=== PATIENT | male | born 1935 | race Caucasian/White ===

== ENCOUNTER 2019-07-25 08:37 | Day surgery (SDC) | payer MEDICARE, OTHER ==
[~2019-07-25 08:37] MED LIST: Lactated Ringers 1,000 ML IV SCH; Sodium Chloride 0.9% 10 ML SDV IV PRN; Sodium Chloride 0.9% 10 ML Syringe FLUSH PRN; Sodium Chloride 0.9% 2.5 ML Syringe FLUSH PRN
[2019-07-25] MEDS ORDERED: Propofol 200 MG/20 ML SDV ONE (09:24)
--- NOTE | 2019-07-25 09:37 | PCM.PREANE ---
Preanesthetic Assessment - Anesthesia/Transfusion/Family Hx Anesthesia History: Prior Anesthesia Without Reaction Family History of Anesthesia Reaction: No Transfusion History: No Prior Transfusion(s) Intubation History: Unknown - Review of Systems General: No Symptoms Pulmonary: No Symptoms Cardiovascular: No Symptoms Gastrointestinal: No Symptoms, Other (5 polyps on colonoscopy last year) Neurological: No Symptoms Other: Reports: None - Physical Assessment NPO Status Date: 07/24/19 NPO Status Time: 22:00 Vital Signs: Last Vital Signs Temp 36.6 C 07/25/19 08:51 Pulse 76 07/25/19 08:51 Resp 16 07/25/19 08:51 BP 146/46 H 07/25/19 08:51 Pulse Ox 93 L 07/25/19 08:51 Height: 6 ft Weight: 105.687 kg ASA Class: 3 Mental Status: Alert & Oriented x3 Airway Class: Mallampati = 2 Dentition: Reports: Dentures (upper and lower) Thyro-Mental Finger Breadths: 3 Mouth Opening Finger Breadths: 3 ROM/Head Extension: Limited/Partial Lungs: Normal Respiratory Effort, Decreased Breath Sounds Cardiovascular: Regular Rate, Regular Rhythm - Allergies Allergies/Adverse Reactions: Allergies Allergy/AdvReac Type Severity Reaction Status Date / Time Sulfa (Sulfonamide Allergy Itching Verified 07/18/19 12:06 Antibiotics) - Blood Blood Available: No - Anesthesia Plan Pre-Op Medication Ordered: None - Acknowledgements Anesthesia Type Planned: MAC Pt an Appropriate Candidate for the Planned Anesthesia: Yes Alternatives and Risks of Anesthesia Discussed w Pt/Guardian: Yes Pt/Guardian Understands and Agrees with Anesthesia Plan: Yes PreAnesthesia Questionnaire HEENT History: Reports: Cataract, Other (See Below) Other HEENT History: wears glasses, has top and bottom dentures Cardiovascular History: Reports: Angina, Arrhythmia, Heart Failure, High Cholesterol, Hypertension Respiratory History: Reports: COPD (moderate), Sleep Apnea Other Respiratory History: uses a CPAP Gastrointestinal History: Reports: Colon Polyp, Inflammatory Bowel Disease Other Gastrointestinal History: ulcerative colitis Genitourinary History: Reports: BPH, Renal Disease Other Genitourinary History: Chronic Kidney Disease Stage 2 Musculoskeletal History: Reports: Arthritis Neurological History: Reports: None Endocrine/Metabolic History: Reports: Obesity/BMI 30+ Hematologic History: Reports: Anemia, Other (See Below) Other Hematologic History: bruises easily Immunologic History: Reports: None Oncologic (Cancer) History: Reports: Basal Cell Carcinoma Other Oncologic History: several spots removed or frozen on his face Dermatologic History: Reports: None - Past Surgical History Head Surgeries/Procedures: Reports: None HEENT Surgical History: Reports: Cataract Surgery Other Cardiovascular Surgeries/Procedures: hx of angioplasty- no stents Respiratory Surgical History: Reports: None GI Surgical History: Reports: Colon, Colonoscopy (5-6 times, last one last year) , Colostomy Other GI Surgeries/Procedures: 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 Endocrine Surgical History: Reports: None Neurological Surgical History: Reports: None Musculoskeletal Surgical History: Reports: None Oncologic Surgical History: Reports: None Dermatological Surgical History: Reports: Skin Biopsy, Other (See Below) - SUBSTANCE USE Smoking Status *Q: Former Smoker Tobacco Use Within Last Twelve Months: No Recreational Drug Use History: No - HOME MEDS Home Medications: Home Meds Adalimumab [Humira Pen Crohn's-Uc-Hs] 1 dose SQ ASDIRECTED 07/16/18 [History] Carvedilol 6.25 mg PO BID 07/16/18 [History] Doxazosin Mesylate [Cardura] 8 mg PO BEDTIME 07/16/18 [History] Ferrous Sulfate 325 mg PO DAILY 07/16/18 [History] Furosemide 20 mg PO BID 07/16/18 [History] Isosorbide Mononitrate [Isosorbide Mononitrate ER] 1.5 tab PO BID 07/16/18 [ History] Mometasone Furoate [Asmanex] 2 puff INH QPM 07/16/18 [History] Nitroglycerin [Nitrostat] 0.4 mg SL ASDIRECTED PRN 07/16/18 [History] Potassium Chloride 10 meq PO BID 07/16/18 [History] Simvastatin [Zocor] 20 mg PO BEDTIME 07/16/18 [History] amLODIPine Besylate [Amlodipine Besylate] 10 mg PO DAILY 07/16/18 [History] hydrALAZINE [Apresoline] 25 mg PO BID 07/16/18 [History] Albuterol Sulfate 1 unit NEB ASDIRECTED PRN 07/18/19 [History] Albuterol Sulfate [Proair Hfa] 2 puff INH ASDIRECTED PRN 07/18/19 [History] Allopurinol [Zyloprim] 100 mg PO DAILY 07/18/19 [History] Aspirin [Low Dose Aspirin EC] 81 mg PO DAILY 07/18/19 [History] Lisinopril 10 mg PO DAILY 07/18/19 [History] - CURRENT (IN HOUSE) MEDS Current Meds: Current Medications Lactated Ringer's (Ringers, Lactated) 1,000 mls @ 125 mls/hr IV ASDIRECTED ELVA Last Admin: 07/25/19 09:03 Dose: 125 mls/hr Sodium Chloride (Saline Flush) 10 ml FLUSH ASDIRECTED PRN PRN Reason: Keep Vein Open Sodium Chloride (Saline Flush) 2.5 ml FLUSH ASDIRECTED PRN PRN Reason: Keep Vein Open Sodium Chloride (Saline Flush) 10 ml FLUSH ASDIRECTED PRN PRN Reason: Keep Vein Open Sodium Chloride (Saline Flush) 2.5 ml FLUSH ASDIRECTED PRN PRN Reason: Keep Vein Open Sodium Chloride (Normal Saline) 10 ml IV ASDIRECTED PRN PRN Reason: IV Use Discontinued Medications Propofol (Diprivan 20 Ml) Confirm Administered Dose 400 mg .ROUTE .STK-MED ONE Stop: 07/25/19 09:25
--- NOTE | 2019-07-25 10:24 | PCM.OPNOTE ---
- General Post-Op/Procedure Note Date of Surgery/Procedure: 07/25/19 Operative Procedure(s): Colonoscopy Findings: 1 ascending colon polyp, sigmoid colon polyps x 2 Pre Op Diagnosis: History of colon polyps, ulcerative colitis Post-Op Diagnosis: Sigmoid colon polyp x 2, ascending colon polyp Anesthesia Technique: MAC Primary Surgeon: Suki Mccullough Condition: Good
--- NOTE | 2019-07-25 10:55 | PCM.POSTAN ---
POST ANESTHESIA ASSESSMENT - MENTAL STATUS Mental Status: Alert, Oriented - VITAL SIGNS Vital Signs: Last Vital Signs Temp 36.5 C 07/25/19 10:37 Pulse 57 L 07/25/19 10:37 Resp 16 07/25/19 10:37 BP 124/45 L 07/25/19 10:37 Pulse Ox 95 07/25/19 10:37 - RESPIRATORY Respiratory Status: Respiratory Rate WNL, Airway Patent, O2 Saturation Stable - CARDIOVASCULAR CV Status: Pulse Rate WNL, Blood Pressure Stable - GASTROINTESTINAL GI Status: No Symptoms - PAIN Pain Score: 0 - POST OP HYDRATION Hydration Status: Adequate & Stable - OBSERVATIONS Free Text/Narrative:: no anesthesia problems
--- NOTE | 2019-07-25 10:57 | PCM48HPAN ---
Post Anesthesia Note - EVALUATION WITHIN 48HRS OF ANESTHETIC Vital Signs in Normal Range: Yes Patient Participated in Evaluation: Yes Respiratory Function Stable: Yes Airway Patent: Yes Cardiovascular Function Stable: Yes Hydration Status Stable: Yes Pain Control Satisfactory: Yes Nausea and Vomiting Control Satisfactory: Yes Mental Status Recovered: Yes Vital Signs: Last Vital Signs Temp 36.5 C 07/25/19 10:37 Pulse 57 L 07/25/19 10:37 Resp 16 07/25/19 10:37 BP 124/45 L 07/25/19 10:37 Pulse Ox 95 07/25/19 10:37 - COMMENTS/OBSERVATIONS Free Text/Narrative:: no anesthesia problems
--- NOTE | 2019-07-25 15:25 | OR ---
SURGEON: SUKI MCCULLOUGH MD DATE OF PROCEDURE: 07/25/2019 PREOPERATIVE DIAGNOSIS: History of colon polyps and ulcerative colitis. POSTOPERATIVE DIAGNOSES: 1. Ascending colon polyp x1. 2. Sigmoid colon polyps x2. PROCEDURE PERFORMED: Diagnostic colonoscopy. PRIMARY SURGEON: Suki Mccullough MD. ANESTHESIA: MAC. INSTRUMENT USED: Olympus colonoscope. EXTENT OF EXAM: To the cecum. PREPARATION: Good. LIMITATIONS: None. INDICATION FOR EXAMINATION: The patient is an 83-year-old male with a history of multiple colon polyps and ulcerative colitis. He is due for his one year followup colonoscopy. I explained the procedure, expected perioperative course, and risks including bleeding, infection, or damage to surrounding structures. The patient verbalized understanding and wishes to proceed. PROCEDURE IN DETAIL: The patient was brought into the endoscopy suite and placed in the left lateral decubitus position. A time-out was completed verifying the patient's name, age, date of , allergies, and procedure to be performed. Monitored anesthesia care was induced and continuous oxygen was provided via nasal cannula throughout the procedure. After adequate sedation was achieved, a digital rectal exam was performed. This exam was within normal limits. A well-lubricated colonoscope was inserted in the rectum and advanced under direct visualization to the level of cecum. The cecum was identified by both visual and anatomic landmarks. A photograph was taken of the cecal cap as well as with the scope retroflexed within the cecum. The scope was then fully withdrawn while examining the color, texture, anatomy, and integrity of the mucosa from the cecum to the anal canal. The patient was found to have a small sessile polyp in the distal ascending colon. This was removed in piecemeal fashion using a cold biopsy forceps. The scope was brought into the sigmoid colon, 2 similar appearing polyps were found as well. These were removed in similar fashion and sent to Pathology labeled as sigmoid colon polyp #1 and sigmoid colon polyp #2. The scope was then brought into the rectum and retroflexed to allow visualization of the anal canal opening. This appeared normal and a photograph was taken. The scope was then straightened out and fully withdrawn. The cecum to anus time was 9 minutes. The patient tolerated the procedure well and was transferred to PACU in stable condition. ENDOSCOPIC DIAGNOSES: 1. Ascending colon polyp x1. 2. Sigmoid colon polyps x2. RECOMMENDATIONS: Follow up in clinic in 2 weeks. KATHY VALENCIA /[id number]
== END 2019-07-25 10:56 | disposition home or self-care (01) ==
LOC: MW.SDS 08:37
PROVIDERS: ATTEND Surgery
DX: Z12.11 Encounter for screening for malignant neoplasm of colon (principal); D12.5 Benign neoplasm of sigmoid colon; D12.2 Benign neoplasm of ascending colon; I11.0 Hypertensive heart disease with heart failure; I50.9 Heart failure, unspecified; J44.9 Chronic obstructive pulmonary disease, unspecified; G47.33 Obstructive sleep apnea (adult) (pediatric); Z88.8 Allergy status to other drugs, medicaments and biological substances; Z88.2 Allergy status to sulfonamides; Z99.89 Dependence on other enabling machines and devices; Z86.010 Personal history of colon polyps; Z87.19 Personal history of other diseases of the digestive system; Z87.891 Personal history of nicotine dependence; Z79.82 Long term (current) use of aspirin; Z79.899 Other long term (current) drug therapy
CPT/HCPCS: 45380; J2704; J7120